=== PATIENT | male | born 1965 | race Caucasian/White ===

== ENCOUNTER 2024-04-11 18:51 | Inpatient (IN) | payer OTHER, SELFPAY ==
[2024-04-11 14:23] VITALS: BP 166/94
--- NOTE | 2024-04-11 15:12 | ED.PDOC.TRB ---
ED Provider Triage
-
Patient is a 58-year-old male who is status post right foot surgery in October by Dr. Coburn with persistent infection. Patient reports he saw Dr. Coburn today and was sent in for admission. Plan as per patient is that Dr. Coburn will do surgery.
Patient denies any fever or chills. PT states that Dr Coburn did wound cx today. PT with obvious swelling erythema and open wound that is draining purulent drainage to posterior ankle. He is nontoxic-appearing will check labs. Will check labs
[2024-04-11 15:49] LABS: % Basophils 0.4 % (0-2); % Eosinophils 2.9 % (0-6); % Immature Granulocytes 0.7 % (0-0.5); % Lymphocytes 21.1 % (20.5-51.1); % Monocytes 12.1 % (1.7-9.3); % Neutrophils 62.8 % (42.2-75.2); Absolute Eosinophils 0.2 10^3/uL (0-0.7); Absolute Immature Granulocytes 0.1 10^3/uL (0-0.05); Absolute Lymphocytes 1.6 10^3/uL (1.2-3.4); Absolute Monocytes 0.9 10^3/uL (0.1-0.6); Absolute Neutrophils 4.8 10^3/uL (1.4-6.5); Hematocrit 38.5 % (39.0-52.0); Mean Corp Hgb Conc. 36.4 g/dL (33.0-37.0); Mean Corpuscular Hgb 29.5 pg (27.0-31.0); Mean Corpuscular Volume 81.2 fL (80.0-94.0); Mean Platelet Volume 10.8 fL (7.4-10.4); Nucleated Red Blood Cells % 0 % (-); Platelet Count 192 10^3/uL (130-400); Red Blood Cell Count 4.74 10^6/uL (4.70-6.10); Red Cell Dist. Width 13.2 % (11.5-14.5); White Blood Cell Count 7.7 10^3/uL (4.8-10.8)
[2024-04-11 16:03] LABS: ALT (SGPT) 58 U/L (0-50); AST (SGOT) 46 U/L (17-59); Albumin 4.8 g/dl (3.5-5.0); Alkaline Phosphatase 59 U/L (38-126); Blood Urea Nitrogen 16 mg/dl (9-20); Calcium 9.8 mg/dl (8.4-10.2); Carbon Dioxide 23 mmol/L (22-30); Chloride 100 mmol/L (98-107); Glucose 140 mg/dl (70-99); Potassium 3.6 mmol/L (3.5-5.1); Sodium 136 mmol/L (135-145); Total Bilirubin 1.1 mg/dl (0.2-1.3); Total Protein 7.2 g/dl (6.3-8.2); eGFR > 60.00
--- NOTE | 2024-04-11 16:21 | ED.GENMED ---
History of Present Illness
General
Chief Complaint: Skin Problem
Source: patient
Exam Limitations: none
Time Seen by Provider: 04/11/24 15:27
Nursing documentation reviewed up to this point in time: agreed with
History of Present Illness
History of Present Illness:
Patient is a 58-year-old male seen by me in triage sent by Dr. Coburn of podiatry. Patient has chronic wound to heal from surgery in October. He denies any fever or chills. Patient is a type II diabetic
Past History
Past History
ED Past Medical History: HTN, Hypercholesterolemia and NIDDM
Social History
Tobacco: Non-smoker
Personal:
Review of Systems
Review of Systems
Allergies reviewed?: Yes
All Other Systems: ROS reviewed and negative except as documented in HPI and ROS
Constitutional: Reports no symptoms; Denies fever, fatigue or chills
Musculoskeletal: Reports other (Redness infection and drainage to right foot)
Skin: Reports other (See above)
Neurological: Reports no symptoms
Psychiatric: Reports no symptoms
Phy Exam
General Physical Exam
General Presentation: no apparent distress
General age: appears stated age
General Skin: warm and dry
General Habitus: normal
General Mental: alert
General Hydration: appears well hydrated
Neurological Exam
Neurological Exam: alert and oriented x3
Musculoskeletal Exam
Musculoskeletal Exam: other (Patient with strong pulses to right lower extremity patient with obvious open wound draining purulent drainage to posterior heel region area is red and swollen)
Skin Exam
Skin Exam: normal color and warm/dry
Psychiatric Exam
Psychiatric Exam: normal mood/affect
Course
Orders/Labs/Results
Orders:
Orders
04/11/24 15:26
IV Insert/Care/Rem.- Treatment PRN
04/11/24 15:40
Complete Blood Count/With Diff Urgent
Comprehensive Metabolic Panel Urgent
04/11/24 16:19
Foot, Right 3 View [CR Foot - Right Min 3 Views] Urgent
Comment:
Reason For Exam: infection
Abnormal Lab Results
04/11/24
15:40
Hct 38.5 L %
(39.0-52.0)
MPV 10.8 H fL
(7.4-10.4)
Abs Immat Gran (auto) 0.1 H 10^3/uL
(0-0.05)
Absolute Monos (auto) 0.9 H 10^3/uL
(0.1-0.6)
Immature Gran % 0.7 H %
(0-0.5)
Monocytes % 12.1 H %
(1.7-9.3)
Glucose 140 H mg/dl
(70-99)
ALT 58 H U/L
(0-50)
04/11/24 15:40
04/11/24 15:40
Vital Signs
Initial and Last Documented VS:
Initial Vital Signs
Temp Pulse Resp BP Pulse Ox
99.3 F 89 18 166/94 96
04/11/24 14:23 04/11/24 14:23 04/11/24 14:23 04/11/24 14:23 04/11/24 14:23
Last Documented Vital Signs
Temp Pulse Resp BP Pulse Ox
99.3 F 89 18 166/94 96
04/11/24 14:23 04/11/24 14:23 04/11/24 14:23 04/11/24 14:23 04/11/24 14:23
MDM/Problems Addressed
Differential Diagnosis Includes:
Persistent foot infection
MDM/Problems Addressed:
Patient sent by Dr. Coburn podiatry for infected right wound. He was sent to the ER by Dr. Coburn for admission for OR cleanout. This wound has been persistent since patient had surgery in October. He denies any fevers he is afebrile. I spoke
with orthopedics Dr. Coburn, blood culture ordered. a wound l culture was sent earlier by him but this was sent from [facility] we will recheck here. In addition as requested IV antibiotics given will check x-ray. Recommend admission MRI for OR
n.p.o.
Chronic conditions affecting care:
NIDDM
*Critical Care Note
Total Time (30-74mins, 75-104mins- exclusive of procedures): Not Applicable
ED Attending Note
-
Portions of this chart may have been created with voice recognition software.� Occasional wrong word or��sound alike� substitutions may have occurred due to the inherent limitations of voice recognition software.
Discharge Plan
Departure
Patient Disposition: Admit
Date of Disposition: 04/11/24
Time of Disposition: 16:29
Presentation/result/management discussed w/ accepting MD/DO: Hospitalist
Patient with high blood pressure during this ER visit?: Yes
Condition: Fair
Covid-19: Not Applicable
Discharge Problem:
foot infection
Prescriptions:
No Action
Atorvastatin
10 mg PO DAILY
lisinopril-hydrochlorothiazide 1 EACH tablet
1 ea PO DAILY
aspirin 81 MG tablet,chewable
81 mg PO DAILY
sitagliptin phos-metformin [Janumet XR] 1 EACH tablet, ER multiphase 24 hr
1 ea PO BID
Patient Comments:
ON HOLD UNTIL 1400PM Thursday12/26/12
Referrals:
Huang Lozada MD [Family Provider] -
Interventions
Interventions:
*Risk Screen - Suicide Last Done: 04/11/24 15:41
*General Assessment Last Done: 04/11/24 15:41
*Neglect/Abuse Screening Last Done: 04/11/24 15:41
ED- Fall Risk Assessment Last Done: 04/11/24 15:41
*ED COVID-19 Vaccine History Last Done: 04/11/24 15:41
ED-Skin Assessment Last Done: 04/11/24 15:41
Discharge Date and Time
Print Language: TAIWANESE
[2024-04-11] MEDS: ZOSYN 50 IV ×2 (16:42→23:19)
[2024-04-11] MEDS: VANCOCIN 200 IV ×2 (17:08→22:04)
[2024-04-11 18:00] VITALS: BP 155/73
--- NOTE | 2024-04-11 18:19 | HPS.HSE ---
Addendum entered and electronically signed by Tucker Barber MD 04/11/24 18:39:
Seen and examined by me independently in collaboration with RYLAN Holm.
Past medical history/social history/medication/allergies reviewed.
Lab data and imaging data reviewed.
58-year-old gentleman with nonhealing right heel wound. Ever since his surgery in October he has been having recurrent infection. Gets better with antibiotics but then reoccurs. He has some sort of anchors placed in the calcaneum bone after the
surgery in October. Seen by oil and gas lease pumper Dr. Coburn and now getting admitted for surgical management of his chronic nonhealing wound.
He denies any fever or chills.
Denies any neuropathy or peripheral arterial disease. He is known diabetic and thinks very well-controlled.
Hemodynamically stable. Afebrile.
Heart sinus and persisted regular.
Chest clear
No lower extremity edema. Palpable dorsalis pedis and bilaterally.
Right heel wound in dressing.Rt foot swelling noted.
Lab data noted-no leukocytosis and creatinine normal. Foot x-ray noted-Osteomyelitis is not excluded on the basis of this imaging.
Chronic nonhealing right heel ulcer with overlying soft tissue swelling concerning for soft tissue infection. Rule out osteomyelitis. Admit to hospital for further evaluation and treatment. Start on empirical antibiotics with Vanco and Zosyn.
Wound cultures have been sent from ER. Obtain MRI of the foot. Consult oil and gas lease pumper. N.p.o. past midnight for possible surgery tomorrow.
DM 2 -hold metformin. On Toujeo as an outpatient. Start on sliding scale insulin. No neuropathy. Check an arterial ultrasound of the leg to make sure no PAD.
Hypertension-continue with ERIC inhibitor's but hold hydrochlorothiazide for now.
Full code
Original Note:
Family Physician
-
Family Physician: Huang Lozada
Chief Complaint
-
Recurrent Right Heel Infection
History of Present Illness
Pt is a 58 yo M with PMH DM, HTN, and HLD presents following referral from Dr Coburn (podiatry) for admission. Pt had R foot surgery in October 2023 which has developed recurrent infection. He reports completing several courses of antibiotics but
notes after completion of course the infection recurs. He was sent to the ED by Dr. Coburn due to recurrent infection and need for R incision/drainage/washout and hardware removal. He denies fever, chills, SOB, chest pain, and palpitations.
Medical History
Past Medical History
Past Medical History: Reports Other
Additional Past Medical History:
Diabetes Mellitus, Type II
Essential Hypertension
Hyperlipidemia
Lumbar Epidural Abscess
Past Surgical History: Reports Other
Additional Past Surgical History:
Lumbar Epidural Abscess Removal
Right Heel Surgery
Social History
Tobacco: Non-smoker
Alcohol: Occasional
Family History
Family History: Not pertinent
Allergies / Home Medications
Allergies reflects when Allergies were last updated in [employer].
Home Medications with original date entered in [employer]
Allergy/Medication List:
Allergies
Allergy/AdvReac Type Severity Reaction Status Date / Time
No Known Allergies Allergy Unverified 04/11/24 14:24
Home Medications
atorvastatin 10 mg tablet 10 mg PO DAILY 12/25/12
gabapentin 300 mg capsule 300 mg PO TIDPRN PRN foot pain 04/11/24
lisinopril 20 mg-hydrochlorothiazide 25 mg tablet 1 tab PO DAILY 04/11/24
metformin 500 mg tablet 1,000 mg PO HS 04/11/24
metformin 500 mg tablet 500 mg PO DAILY 04/11/24
tadalafil 20 mg tablet 20 mg PO DAILYPRN PRN ed 04/11/24
tirzepatide 10 mg/0.5 mL subcutaneous pen injector (Mounjaro) 10 mg SC TU 04/11/24
tramadol 50 mg tablet 50 mg PO Q6HPRN PRN moderate pain 04/11/24
Review of Systems
-
A 12 point ROS was completed and negative except as noted: Yes
Constitutional: Denies Fever or Chills
Respiratory: Denies Cough or Trouble Breathing
Cardiac: Denies Chest Pain or Palpitations
Abdomen/GI: Denies Abdominal Pain, Nausea, Vomiting or Diarrhea
Physical Exam
Vital Signs
Vital Signs
Temp Pulse Resp BP Pulse Ox
99.3 F 89 18 166/94 96
04/11/24 14:23 04/11/24 14:23 04/11/24 14:23 04/11/24 14:23 04/11/24 14:23
Physical Exam
General: Comfortable and Conversant
HEENT: Anicteric and Moist mucous membranes
Respiratory: Clear and Non Labored Respirations
Cardiac: S1/S2, Regular Rhythm and Murmur (2/6 Systolic Murmur)
GI: Soft and Non Tender
Rectal: Deferred by Provider
Musculoskeletal: No Clubbing, No Cyanosis and No Edema
Skin: Warm, Dry and Other (Small right posterior heel wound drainage purulent material)
Neuro: Awake, Alert, Oriented and Nonfocal/grossly intact
Psych: Calm
Laboratory Results
-
04/11/24 15:40
04/11/24 15:40
Laboratory Results
Total Bilirubin 1.1 mg/dl (0.2-1.3) 04/11/24 15:40
AST 46 U/L (17-59) 04/11/24 15:40
ALT 58 U/L (0-50) H 04/11/24 15:40
Alkaline Phosphatase 59 U/L (38-126) 04/11/24 15:40
Data Reviewed
-
Lab Data: Labs Reviewed by me
Impression/Plan
-
Infected Right Heel Wound, concern for underlying osteomyelitis and possibly infected hardware
-Consult Podiatry
-Check Right Foot MRI
-Continue empiric Vancomycin and Zosyn
-NPO after midnight for OR tomorrow
Diabetes Mellitus, Type II
-Patient maintained on Mounjaro as outpatient
-Hold metformin
-Monitor sugars and continue coverage insulin
Essential Hypertension
-Continue lisinopril
-Hold HCTZ
Hyperlipidemia
-Continue atorvastatin
DVT proph: Lovenox
Code Status: Full Code
[2024-04-11 20:00] VITALS: BP 139/96; BMI 41.7
--- NOTE | 2024-04-11 20:00 | PTCARENOTE ---
Pt arrived to room 437-01. Pt AAOx3, VSS. Pt c/o 01/31 pain in right foot. Pt oriented to room, call trent placed within reach.
--- NOTE | 2024-04-11 21:15 | PHA.VAN.IN ---
Assessment
- Assessment
Renal Function: Other (01/08/13 baseline scr: 0.9)
Concomitant Antimicrobials: ZOSYN
- Previous Dosing Experience
Previous Regimen: 1GM IV Q8H
Date of Regimen: 12/26/12
Provided Trough of: 9
Provided AUC of: UNKNOWN
Patient's SCR is: Decreased compared to previous dosing experience (12/26/12 SCR = 1.0)
Patient's weight is: Decreased compared to previous dosing experience (12/26/12 WT = 129.4 KG)
AUC Dosing Plan
- Dosing Variables
Dosing Weight (kg): 120.8
Dosing CrCl (ml/min): 100
Vd coefficient (L/kg): 0.5
- Empiric Dosing
Initial / Loading Dose: 2GM TOTAL
Maintenance Regimen: 1250MG IV Q12H
Estimated AUC (mcg*h/mL): 505
Estimated Peak (mcg*h/mL): 31.9
Estimated Trough (mcg/ml): 12.7
Estimated Half Life (H): 7.9
Pharmacokinetics Vancomycin I
- -
Patient Age: 58
Patient Sex: Male
Vancomycin Day #: 1
Indication: Skin And Soft Tissue ([R] FOOT INFECTION, poss OM)
Requesting Provider: STACEY
Height / Weight:
Height 5 ft 7 in
Actual Weight 120.769 kg
- Vital Signs / Lab Results
Temp Pulse Resp BP Pulse Ox
99.3 F 88 18 139/96 95
04/11/24 20:00 04/11/24 20:00 04/11/24 20:00 04/11/24 20:00 04/11/24 20:00
Lab Results - Hematology
04/11/24
15:40
WBC 7.7
Lab Results - Chemistry
04/11/24
15:40
BUN 16
Creatinine 0.7
Albumin 4.8
Microbiology Results
04/11/24 16:41 Gram Stain - Preliminary
Foot - Right
[2024-04-11 21:52] LABS: Glucose - Point of Care 201 mg/dl (70-99)
[2024-04-11] MEDS: ULTRAM 50 MG PO (21:59)
[2024-04-11] MEDS: NEURONTIN 300 MG PO (22:00)
[2024-04-11 23:45] VITALS: BP 113/71
[2024-04-12] VITALS (14 sets, daily range): BP systolic 110–153; BP diastolic 64–92
[2024-04-12] MEDS: ZOSYN 50 IV ×4 (03:19→21:08)
[2024-04-12 06:00] LABS: Glucose - Point of Care 161 mg/dl (70-99)
[2024-04-12] MEDS: VANCOCIN 275 MG IV (06:16)
--- NOTE | 2024-04-12 06:53 | W.PN.UPDATE ---
Update Note
Progress Note Update
Patient seen and evaluated by Orthopedic surgery this morning. Plan for OR later today under the direction of Dr. Coburn for right ankle I&D and removal of hardware. Patient to remain NPO. Order placed. Currently on started on empirical
antibiotics with Vanco and Zosyn. Please hold Lovenox at this time. Resume per Dr. Coburn recommendation. Consent obtained and placed in patient's chart. All questions were answered.
[2024-04-12 07:51] LABS: Hemoglobin 13.1 g/dL (13.0-18.0); Mean Corp Hgb Conc. 35.4 g/dL (33.0-37.0); Mean Corpuscular Hgb 29.6 pg (27.0-31.0); Mean Corpuscular Volume 83.7 fL (80.0-94.0); Mean Platelet Volume 10.3 fL (7.4-10.4); Platelet Count 180 10^3/uL (130-400); Red Blood Cell Count 4.42 10^6/uL (4.70-6.10); Red Cell Dist. Width 13.2 % (11.5-14.5); White Blood Cell Count 5.6 10^3/uL (4.8-10.8)
[2024-04-12] MEDS: LIPITOR 10 MG PO (08:10)
[2024-04-12 08:28] LABS: Blood Urea Nitrogen 16 mg/dl (9-20); Calcium 9.4 mg/dl (8.4-10.2); Carbon Dioxide 25 mmol/L (22-30); Chloride 101 mmol/L (98-107); Estimated Creatinine Clearance 111 ml/min; Glucose 152 mg/dl (70-99); Potassium 4.1 mmol/L (3.5-5.1); Sodium 136 mmol/L (135-145); eGFR > 60.00
--- NOTE | 2024-04-12 08:50 | PHA.VAN.FU ---
Vancomycin Assessment / Plan
- Assessment
Renal Function: Stable
WBC's are: WNL
In the past 24 hrs, patient has been: Afebrile
Concomitant Antimicrobials: piperacillin/tazobactam
- Dosing Plan
Adjust Regimen to: Vanc 1500mg Q12H starting at 1800
New Regimen Predicts: AUC (459), Peak (30.1), Trough (10.9)
- Monitoring Plan
No level(s) ordered at this time: consider levels in next few days
- Follow Up
Pharmacy will continue to follow.
Vancomycin Follow UP
- -
Patient Age: 58
Patient Sex: Male
Vancomycin Day #: 2
Indication: Skin And Soft Tissue
Requesting Provider: Shailesh Mijares
Pertinent Antimicrobial Allergies:
NKDA
Height / Weight:
Height 5 ft 7 in
Actual Weight 120.769 kg
Pertinent Past Medical History: BMI ~42, DM2
- Vital Signs / Lab Results
Temp Pulse Resp BP Pulse Ox
98.4 F 77 16 110/69 94
04/12/24 07:34 04/12/24 07:34 04/12/24 07:34 04/12/24 07:34 04/12/24 07:34
Lab Results - Hematology
04/11/24 04/12/24
15:40 07:09
WBC 7.7 5.6
Lab Results - Chemistry
04/11/24 04/12/24
15:40 07:09
BUN 16 16
Creatinine 0.7 0.9
Estimated Creat Clear 111
Albumin 4.8
Microbiology Results
04/11/24 16:41 Gram Stain - Preliminary
Foot - Right
[2024-04-12] MEDS: NOVOLOG FLEXPEN-LOW RESISTANCE 1 UNITS SC ×2 (09:14→14:08)
[2024-04-12] MEDS: ZESTRIL 20 MG PO (09:14)
[2024-04-12] MEDS: ULTRAM 50 MG PO ×2 (09:40→22:02)
--- NOTE | 2024-04-12 11:43 | CM ---
Patient seen at bedside. Patient states that he lives with family. Patient stated she lives in a 3 story home and Patient has a walker and crutches at home. Patient stated that his PCP is Dr. Lozada and he uses the [facility] in [place]. Patient
states that he is going for surgery later today. CM will continue to follow for discharge planning needs.
Plan; home with no needs vs home with VN pending medical treatment plan
[2024-04-12 12:14] LABS: Glucose - Point of Care 160 mg/dl (70-99)
--- NOTE | 2024-04-12 13:57 | W.PN.HOSP.TC ---
Today's Communication/Plan
-
OR today
MRI foot pending
Assessment / Plan
Assessment / Plan
Chronic nonhealing right heel ulcer with overlying soft tissue swelling concerning for soft tissue infection. Rule out osteomyelitis. Admitted to hospital for further evaluation and treatment. Started on empirical antibiotics with Vanco and
Zosyn. Wound cultures have been sent from ER. Obtain MRI of the foot. Consult shelf drier operator. N.p.o. for possible surgery today.
DM 2 -hold metformin. On Toujeo as an outpatient. Started on sliding scale insulin. No neuropathy. Check an arterial ultrasound of the leg to make sure no PAD.
Hypertension-continue with ERIC inhibitor's but hold hydrochlorothiazide for now.
Anticipated Discharge: 24 - 48 hours
Subjective/Interval History
-
Date of Service: April 12, 2024
no fever
Objective Data
-
Labs:
Laboratory Results
04/12/24
07:09
WBC 5.6
Hgb 13.1
Hct 37.0 L
Plt Count 180
Sodium 136
Potassium 4.1
Chloride 101
Carbon Dioxide 25
BUN 16
Creatinine 0.9
Glucose 152 H
Calcium 9.4
Vital Signs:
Vital Signs
Temp Pulse Resp BP Pulse Ox
98.4 F 77 16 110/69 98
04/12/24 07:34 04/12/24 07:34 04/12/24 07:34 04/12/24 07:34 04/12/24 11:44
I&O
04/11/24 04/12/24 04/13/24
06:59 06:59 06:59
Intake Total 480 / 480
Balance 480 / 480
Review of Systems
-
Respiratory: Denies Trouble Breathing
Cardiac: Denies Chest Pain
Abdomen/GI: Denies Abdominal Pain, Nausea or Vomiting
Neuro: Denies Dizzy
Physical Exam
-
General: Comfortable
Respiratory: Non Labored Respirations; Negative Accessory Resp Muscle Use
Cardiac: Regular Rhythm and S1/S2
GI: Soft
Neuro: AO x 3
Data Reviewed
-
Labs: Labs Reviewed by me
[2024-04-12 14:18] LABS: Glycohemoglobin (HgbA1c) 7.1 % (4.0-5.6)
--- NOTE | 2024-04-12 17:49 | W.PN.SURGUPD ---
Surgical Update
Surgical Update
S/p Right heel debridement and hardware removal
-Patient to remain NWB to RLE with strict elevation
-Dressings to remain intact, reinforce as needed
-Continue abx per ID recs
-Plan for return to OR on 04/14 for further debridement and possible closure
[2024-04-12 17:59] LABS: Glucose - Point of Care 191 mg/dl (70-99)
[2024-04-12] MEDS: DILAUDID 0.5 MG IV (18:12)
[2024-04-12] MEDS: NOVOLOG vial 1 UNITS SC (18:15)
[2024-04-12] MEDS: VANCOCIN 300 ML IV (18:20)
[2024-04-12] MEDS: VANCOCIN 300 MG IV (18:20)
[2024-04-12] MEDS: NOVOLOG FLEXPEN-LOW RESISTANCE SC (19:10)
--- NOTE | 2024-04-12 19:24 | PTCARENOTE ---
Patient arrived back to unit via stretcher from PACU around 19:10. AAOX3. Denies pain or discomfort.
[2024-04-12 21:40] LABS: Glucose - Point of Care 269 mg/dl (70-99)
[2024-04-12] MEDS: NEURONTIN 300 MG PO (22:02)
[2024-04-13 02:58] VITALS: BP 113/72
--- NOTE | 2024-04-13 03:16 | DOWNTIME ---
There was a [employer] Client Outreach Counselor Downtime on 04/13/2024 from 0100 to 04/13/2024 at 0252. Downtime documentation of patient's care, including medication administrations, has been reconciled in the electronic record per guidelines. Refer to the
patient's paper chart under the miscellaneous tab to see printed paper medication records and downtime forms.
[2024-04-13] MEDS: ZOSYN 50 IV ×3 (04:17→15:07)
[2024-04-13] MEDS: NEURONTIN 300 MG PO ×3 (05:24→23:50)
[2024-04-13] MEDS: ULTRAM 50 MG PO ×4 (05:24→23:50)
[2024-04-13] MEDS: VANCOCIN 300 ML IV (05:25)
[2024-04-13] MEDS: VANCOCIN 300 MG IV (05:25)
[2024-04-13 07:30] VITALS: BP 129/78
--- NOTE | 2024-04-13 07:36 | W.PN.UPDATE ---
Update Note
Progress Note Update
Patient is sitting up comfortably in bed. He reports no pain in the foot/ankle.
Directed exam of right lower extremity reveals dressing clean, dry, and intact. Surrounding skin intact. No discolorations. Wiggles all toes. Sensation intact to light touch. Cap refill <2secs
Wound culture from 04/11/24 with Staph aureus
Wound cultures obtained in the OR on 04/12/24 pending
POD#1 Right heel debridement and hardware removal under the direction of Dr. Coburn
-Patient to remain NWB to RLE with strict elevation
-Dressings to remain intact, reinforce as needed
-Continue abx, currently Zosyn and Vancomycin
-Plan for return to OR on 04/14 for further debridement and possible closure. Updated consent obtained and placed on chart
-NPO after midnight
[2024-04-13 07:41] LABS: Glucose - Point of Care 163 mg/dl (70-99)
[2024-04-13] MEDS: LIPITOR 10 MG PO (09:34)
[2024-04-13] MEDS: TYLENOL 650 MG PO ×2 (09:34→18:01)
[2024-04-13] MEDS: ZESTRIL 20 MG PO (09:34)
[2024-04-13] MEDS: NOVOLOG FLEXPEN-LOW RESISTANCE SC ×2 (09:43→12:34)
--- NOTE | 2024-04-13 10:14 | PHA.VAN.FU ---
Addendum entered and electronically signed by Zuleyka Quintanilla [facility] 04/13/24 11:36:
Agree with resident's assessment and plan below.
Original Note:
Vancomycin Assessment / Plan
- Assessment
Renal Function: Stable
WBC's are: WNL
In the past 24 hrs, patient has been: Afebrile
- Dosing Plan
Continue: 1500mg Q12H
- Monitoring Plan
No level(s) ordered at this time: consider level in the next few days
- Follow Up
Pharmacy will continue to follow.
Vancomycin Follow UP
- -
Patient Age: 58
Patient Sex: Male
Vancomycin Day #: 3
Indication: Skin And Soft Tissue
Requesting Provider: Shailesh Mijares
Pertinent Antimicrobial Allergies:
NKDA
Height / Weight:
Height 5 ft 7 in
Actual Weight 120.769 kg
Pertinent Past Medical History: BMI ~42, T2DM
- Vital Signs / Lab Results
Temp Pulse Resp BP Pulse Ox
98.9 F 90 16 129/78 92
04/13/24 07:30 04/13/24 07:30 04/13/24 07:30 04/13/24 07:30 04/13/24 07:30
Lab Results - Hematology
04/11/24 04/12/24
15:40 07:09
WBC 7.7 5.6
Lab Results - Chemistry
04/11/24 04/12/24
15:40 07:09
BUN 16 16
Creatinine 0.7 0.9
Estimated Creat Clear 111
Albumin 4.8
Microbiology Results
04/11/24 16:41 Wound Culture - Final
Foot - Right S aureus-Methicillin Sensitive
Gram Stain - Final
04/11/24 22:06 MRSA Screen - Final
Nose No Methicillin Resistant Staphylococcus aureus isolated.
04/12/24 17:50 Gram Stain - Preliminary
Heel - Right
04/12/24 17:50 Gram Stain - Preliminary
Heel - Right
04/11/24 16:41 Blood Culture - Preliminary
Blood/Venous No Growth in 24 hours- Final report to follow
--- NOTE | 2024-04-13 11:15 | PN.CDI ---
CDI
- -
CDI:
Physician Documentation Request
Admit Date: 04/11/24 18:51
Dear Doctor Sunil,
Patient admitted with chronic nonhealing right heel ulcer.
Please review the following and provide your response in the progress notes.
Clinical Indicators:
Height: 5' 7'
Weight: 266 lb 4 oz
BMI: 41.7
Please provide an associated diagnosis related to the abnormal BMI, such as:
Morbid obesity
Obesity
BMI is not significant
Other
BMI > or = to 40
Overweight
Obesity:
Due to excess calories
Drug induced
Due to other cause
Severe or morbid obesity:
With alveolar hypoventilation (Obesity hypoventilation syndrome)
Without alveolar hypoventilation
Use of terms such as suspected, likely, concern for, or probable (associated with a specific diagnosis that is being evaluated, monitored, or treated as if it exists) are acceptable and can be coded in the inpatient setting, when documented at the
time of discharge.
Thank you,
Patria PENA,RN,CCDS
CDI Specialist
Available via tiger text
Please use your independent medical judgment in providing your response.
--- NOTE | 2024-04-13 11:28 | W.PN.HOSP.TC ---
Addendum entered and electronically signed by Tucker Barber MD 04/13/24 15:57:
Based on BMI measurements on adx- suggestive of obesity.
Original Note:
Today's Communication/Plan
-
Continue with antibiotics
OR tomorrow per podiatry
Consult ID
Assessment / Plan
Assessment / Plan
Chronic nonhealing right heel ulcer with overlying soft tissue swelling concerning for soft tissue infection. MRI raises concern for calcaneal osteomyelitis.
Status post I&D of right heel wound as well as removal of anchors in the heel. For repeat surgery and possible closure then noted.
Continue the current antibiotics and follow culture data.
Patient might need long-term antibiotics-consult ID.
DM 2 -hold metformin. On [facility] as an outpatient. Started on sliding scale insulin. No neuropathy. HbA1c 7.1
Hypertension-continue with ERIC inhibitor's but hold hydrochlorothiazide for now.
Anticipated Discharge: > 48 hours
Subjective/Interval History
-
Date of Service: April 13, 2024
Patient's status post right heel I&D 04/12. Pain control okay with pain medication.
No fever or chills.
Objective Data
-
Vital Signs:
Vital Signs
Temp Pulse Resp BP Pulse Ox
98.9 F 90 16 129/78 92
04/13/24 07:30 04/13/24 07:30 04/13/24 07:30 04/13/24 07:30 04/13/24 07:30
I&O
04/12/24 04/13/24 04/14/24
06:59 06:59 06:59
Intake Total 480 / 480 735 / 735
Output Total 1075 / 1075
Balance 480 / 480 -340 / -340
Review of Systems
-
Constitutional: Denies Fever
Respiratory: Denies Trouble Breathing
Cardiac: Denies Chest Pain
Abdomen/GI: Denies Abdominal Pain, Nausea, Vomiting or Diarrhea
Neuro: Denies Dizzy
Physical Exam
-
General: Comfortable
Respiratory: Non Labored Respirations; Negative Accessory Resp Muscle Use
Cardiac: Regular Rhythm and S1/S2
GI: Soft
Musculoskeletal: Other (rt foot in dressing)
Neuro: AO x 3
Psych: Calm
Data Reviewed
-
Labs: Labs Reviewed by me
[2024-04-13 11:57] VITALS: PULSE 84; O2SAT 93
[2024-04-13 11:59] LABS: Glucose - Point of Care 139 mg/dl (70-99)
--- NOTE | 2024-04-13 12:16 | PTOTSP ---
pt currently requires supervision to no assistance to complete simple ADLs, functional transfers, ambulation. educated pt on walker safety, dressing technique. pt demonstrated and verbalized understanding. no acute OT needs identified at this time,
will sign off.
[2024-04-13 15:21] VITALS: BP 143/73
--- NOTE | 2024-04-13 15:46 | CON.ID ---
Consultation
-
Date/Time Consultation Requested: 04/13/2024 08:34
Date/Time Consultation Performed: 04/13/2024 1540
Requesting Provider: Dr. Barber
Performing Provider: Dr. Lima
Reason for Consultation: Right heel infection
Chief Complaint / Past History
History of Present Illness
Edwin Viveros is a 58-year-old man being evaluated the request of Dr. Barber in regards to a right heel infection. History is obtained from chart review, along with patient interview.
The patient has a history of bone spurs, and on November 19, 2023 underwent surgery which involved manipulating the Achilles tendon. He recalls that approximate 2 days after surgery he 'popped a stitch', and approximately 10 days after surgery he
recalls developing an infection. He reports receiving several rounds of doxycycline, and after each course of antibiotics of the drainage decreased, only to return following the cessation of antibiotic therapy. He has previously seen Infectious
Diseases and recently was on a course of Levaquin. He has continued to follow with Orthopedics, and was sent into the hospital on 04/11 for more definitive washout and surgery.
At this point in time he is status post removal of hardware (anchors), with a further surgery anticipated tomorrow. He denies any fevers or chills. He denies any spreading erythema up his leg. Thus far he has had no issues with the antibiotics.
Past History
Additional Past Medical History:
DM
HTN
Dyslipidemia
Additional Past Surgical History:
Right ankle surgery
Allergy History:
No Known Allergies Allergy (Unverified 04/11/24 14:24)
Medications Reviewed: Yes
Current Antibiotics:
Zosyn
Vancomycin
Social History
Tobacco: Non-Smoker
Alcohol: None
Drug: None
Personal:
Living: With Family
Employment: Employed
Family History
Family History: Not Pertinent
Review of Systems
Vital Signs
Temp Pulse Resp BP Pulse Ox
99.8 F 88 16 143/73 96
04/13/24 15:21 04/13/24 15:21 04/13/24 15:21 04/13/24 15:21 04/13/24 15:21
Physical Exam
Physical Exam
Constitutional: No Acute Distress, Comfortable and Non-toxic
Eyes: No Conjunctival Hemorrhage and Sclera Anicteric
Oral: No Thrush and No Ulcers
Cardiovascular: S1/S2; Negative S3/S4
Pulmonary: Clear and Non Labored
Gastrointestinal: Soft, Non Tender, Non Distended and Normal Bowel Sounds
Extremities: Edema (Trace right lower extremity); Negative Erythema
Skin: Warm and Dry; Negative Rash or Jaundice
Wound: Other (Right ankle area dressed in Grant wrap (not removed because of recent surgery))
Neurological: Awake and Alert
Psychological: Calm
Lab / Diagnostic Study Results
04/12/24 07:09
04/12/24 07:09
Abs Immat Gran (auto) 0.1 10^3/uL (0-0.05) H 04/11/24 15:40
Absolute Neuts (auto) 4.8 10^3/uL (1.4-6.5) 04/11/24 15:40
Absolute Lymphs (auto) 1.6 10^3/uL (1.2-3.4) 04/11/24 15:40
Absolute Monos (auto) 0.9 10^3/uL (0.1-0.6) H 04/11/24 15:40
Absolute Basos (auto) 0.0 10^3/uL (0-0.2) 04/11/24 15:40
Immature Gran % 0.7 % (0-0.5) H 04/11/24 15:40
Neutrophils % 62.8 % (42.2-75.2) 04/11/24 15:40
Lymphocytes % 21.1 % (20.5-51.1) 04/11/24 15:40
Monocytes % 12.1 % (1.7-9.3) H 04/11/24 15:40
Eosinophils % 2.9 % (0-6) 04/11/24 15:40
Basophils % 0.4 % (0-2) 04/11/24 15:40
Microbiology Results
Micro:
04/12/24 17:50 Anaerobic Culture - Preliminary
Heel - Right Culture pending. Anaerobic cultures are examined after 3
days incubation. Additional information to follow.
04/12/24 17:50 Tissue Culture - Preliminary
Heel - Right Staphylococcus aureus
Gram Stain - Preliminary
04/12/24 17:50 Wound Culture - Preliminary
Heel - Right No growth
Gram Stain - Preliminary
04/11/24 16:41 Wound Culture - Final
Foot - Right S aureus-Methicillin Sensitive
Gram Stain - Final
04/11/24 22:06 MRSA Screen - Final
Nose No Methicillin Resistant Staphylococcus aureus isolated.
04/11/24 16:41 Blood Culture - Preliminary
Blood/Venous No Growth in 24 hours- Final report to follow
Imaging:
04/12/2024 MRI right lower extremity: There is a soft tissue defect with underlying phlegmonous change along the posterior soft tissues of the heel extending through the distal aspect of the Achilles tendon and into the underlying posterior
calcaneal bone with findings of calcaneal osteomyelitis. There is increased signal more pronounced along the superior calcaneal anchors, likely due to loosening/infection.
04/11/2024 Right foot x-ray: The posterior and superior aspects of the os calcis have been resected in the interval since the prior study and there is severe overlying soft tissue swelling.
Osteomyelitis is not excluded on the basis of this imaging and if this is a clinical consideration, it could be best further evaluated with nonemergent MRI. Please see full dictation for additional detail. Film personally viewed.
Assessment / Plan
Right ankle osteomyelitis
DM (uncontrolled (A1c = 7.1)
HTN
Dyslipidemia
Recommendations:
Review of culture data indicate the presence of MSSA. Imaging indicates the presence of osteomyelitis.
Discontinue further vancomycin and Zosyn. Transition to cefazolin 2 g IV every 8 hours. Given osteomyelitis, patient will require 6-week course of antibiotics.
Moving forward, patient will require PICC line placement, which can be placed once home infusion benefits can be determined.
Will place home infusion sheet on paper chart.
--- NOTE | 2024-04-13 16:13 | CM ---
Chart reviewed home when stable, no needs.
Plan; Home no needs.
[2024-04-13 16:46] VITALS: BP 140/76; PULSE 85; O2SAT 97
[2024-04-13 17:30] LABS: Glucose - Point of Care 158 mg/dl (70-99)
[2024-04-13] MEDS: NOVOLOG FLEXPEN-LOW RESISTANCE 1 UNITS SC (17:31)
[2024-04-13] MEDS: ANCEF 10 IV ×2 (17:32→23:51)
[2024-04-13 21:21] LABS: Glucose - Point of Care 259 mg/dl (70-99)
[2024-04-13 23:18] VITALS: BP 141/76
[2024-04-14] VITALS (11 sets, daily range): BP systolic 119–149; BP diastolic 61–90
[2024-04-14 06:05] LABS: Glucose - Point of Care 167 mg/dl (70-99)
[2024-04-14] MEDS: NOVOLOG FLEXPEN-LOW RESISTANCE 1 UNITS SC (06:19)
[2024-04-14] MEDS: ZESTRIL 20 MG PO (08:47)
[2024-04-14] MEDS: ANCEF 10 IV ×2 (08:47→23:21)
[2024-04-14] MEDS: LIPITOR 10 MG PO (08:47)
[2024-04-14] MEDS: NEURONTIN 300 MG PO ×2 (08:50→20:06)
[2024-04-14] MEDS: TYLENOL 650 MG PO ×2 (08:50→20:05)
[2024-04-14] MEDS: ULTRAM 50 MG PO ×2 (08:54→20:06)
[2024-04-14 11:48] LABS: Glucose - Point of Care 143 mg/dl (70-99)
--- NOTE | 2024-04-14 13:05 | W.PN.HOSP.TC ---
Today's Communication/Plan
-
OR today
PICC ordered
Assessment / Plan
Assessment / Plan
Chronic nonhealing right heel ulcer with overlying soft tissue swelling concerning for soft tissue infection. MRI raises concern for calcaneal osteomyelitis.
Status post I&D of right heel wound as well as removal of anchors in the heel. For repeat surgery today and possible closure then noted.
Continue the current antibiotics and follow culture data.
Patient might need long-term antibiotics-appreciate ID input- arranging OP tx for 6 weeks. PICC line after surgery .
DM 2 -hold metformin. On [facility] as an outpatient. Started on sliding scale insulin. No neuropathy. HbA1c 7.1
Hypertension-continue with ERIC inhibitor's but hold hydrochlorothiazide for now.
Good DP rt foot -hold US
Anticipated Discharge: 24 - 48 hours
Subjective/Interval History
-
Date of Service: April 14, 2024
No overnight events.
No fever or chills.
Right foot pain is okay.
Objective Data
-
Vital Signs:
Vital Signs
Temp Pulse Resp BP Pulse Ox
97.8 F 76 16 147/80 98
04/14/24 07:30 04/14/24 07:30 04/14/24 07:30 04/14/24 07:30 04/14/24 08:40
I&O
04/13/24 04/14/24 04/15/24
06:59 06:59 06:59
Intake Total 735 / 735 960 / 960
Output Total 1075 / 1075
Balance -340 / -340 960 / 960
Review of Systems
-
Respiratory: Denies Trouble Breathing
Cardiac: Denies Chest Pain
Abdomen/GI: Denies Abdominal Pain, Nausea, Vomiting or Diarrhea
Neuro: Denies Dizzy
Physical Exam
-
General: No Apparent Distress
HEENT: Moist Mucous Membranes
Respiratory: Clear to Auscultation
Cardiac: Regular Rhythm and S1/S2
Musculoskeletal: Other (right foot in dressing)
Neuro: AO x 3
Psych: Calm
--- NOTE | 2024-04-14 14:44 | W.PN.ID1 ---
Date of Service
Date of Service: April 14, 2024
Today's Communication
Continue antibiotics.
Assessment / Plan
Right ankle osteomyelitis
DM (uncontrolled (A1c = 7.1)
HTN
Dyslipidemia
Recommendations:
Continue cefazolin 2 g IV every 8 hours. Given osteomyelitis, patient will require 6-week course of antibiotics.
Moving forward, patient will require PICC line placement, which can be placed once home infusion benefits can be determined.
Home infusion sheet placed on paper chart.
Chief Complaint
-: Other (Right foot infection)
Subjective / Review of Systems
Review of Systems: No Fever and No Chills
Vital Signs / Physical Exam
Vital Signs
Vital Signs
Temp Pulse Resp BP Pulse Ox
97.8 F 76 16 147/80 98
04/14/24 07:30 04/14/24 07:30 04/14/24 07:30 04/14/24 07:30 04/14/24 08:40
Physical Exam
Constitutional: No Acute Distress, Comfortable and Non-toxic
Eyes: No Conjunctival Hemorrhage
Cardiovascular: S1/S2; Negative S3/S4
Pulmonary: Non Labored
Gastrointestinal: Soft, Non Tender and Non Distended
Wound: Other (Right foot dressed in Grant wrap. No erythema extending up leg.)
Neurological: Awake and Alert
Objective Data
Lab Data
Lab Results
04/12/24 07:09
04/12/24 07:09
Estimated Creat Clear 111 ml/min 04/12/24 07:09
Total Bilirubin 1.1 mg/dl (0.2-1.3) 04/11/24 15:40
AST 46 U/L (17-59) 04/11/24 15:40
ALT 58 U/L (0-50) H 04/11/24 15:40
Alkaline Phosphatase 59 U/L (38-126) 04/11/24 15:40
Most recent labs reviewed.
Micro Results:
04/12/24 17:50 Wound Culture - Preliminary
Heel - Right No growth
Gram Stain - Preliminary
04/12/24 17:50 Tissue Culture - Final
Heel - Right S aureus-Methicillin Sensitive
Gram Stain - Final
04/11/24 16:41 Blood Culture - Preliminary
Blood/Venous No Growth in 48 hours- Final report to follow
04/12/24 17:50 Anaerobic Culture - Preliminary
Heel - Right Culture pending. Anaerobic cultures are examined after 3
days incubation. Additional information to follow.
04/11/24 16:41 Wound Culture - Final
Foot - Right S aureus-Methicillin Sensitive
Gram Stain - Final
04/11/24 22:06 MRSA Screen - Final
Nose No Methicillin Resistant Staphylococcus aureus isolated.
Imaging:
04/12/2024 MRI right lower extremity: There is a soft tissue defect with underlying phlegmonous change along the posterior soft tissues of the heel extending through the distal aspect of the Achilles tendon and into the underlying posterior
calcaneal bone with findings of calcaneal osteomyelitis. There is increased signal more pronounced along the superior calcaneal anchors, likely due to loosening/infection.
04/11/2024 Right foot x-ray: The posterior and superior aspects of the os calcis have been resected in the interval since the prior study and there is severe overlying soft tissue swelling.
Osteomyelitis is not excluded on the basis of this imaging and if this is a clinical consideration, it could be best further evaluated with nonemergent MRI. Please see full dictation for additional detail. Film personally viewed.
--- NOTE | 2024-04-14 14:58 | CM ---
corporate general manager met with patient and OR later today.
Plan; Possible OR later today.
--- NOTE | 2024-04-14 15:50 | PTCARENOTE ---
04/14- OR called for report. Advised PICC is not able to be used at this time d/t coiling in the R-subclavian as per Physician. PICC will be adjusted by IV team post-procedure as per Physician. OR verbalized understanding. OR requests 1600 Ancef
be sent with him to OR to be administered pre-op. This dose of Ancef will not be administered on this floor.
--- NOTE | 2024-04-14 16:09 | VATNOTE ---
PICC malpositioned per Radiology report. Patient taken to OR prior to VAT being able to redirect PICC line. Pre-Op/PACU RNs made aware not to use PICC line. VAT to reposition PICC line once able.
[2024-04-14] MEDS: ANCEF IV (18:26)
--- NOTE | 2024-04-14 18:30 | W.PN.UPDATE ---
Update Note
Progress Note Update
s/p right heel debridement and closure
-Strict NWB RLE
-Cultures and path taken post lavage, anticipate 6 weeks of IV ABx
-dressings C/D/I, float heel and elevate limb
-Okay to D/C per pods/ortho
-Follow up in office next week
[2024-04-14 18:56] LABS: Glucose - Point of Care 180 mg/dl (70-99)
[2024-04-14] MEDS: SUBLIMAZE 50 MCG IV ×3 (19:04→19:25)
[2024-04-14] MEDS: NOVOLOG vial 1 UNITS SC (19:08)
[2024-04-14] MEDS: DEMEROL 12.5 MG IV ×2 (19:24→19:30)
--- NOTE | 2024-04-14 20:00 | PTCARENOTE ---
Received report from PACU - Fabiana DEGROOT. Patient s/p I&D of right heel. Assisted patient into bed without difficult, nursing assessment completed and as documented. Patient with ERIC/splint wrapped to RLE, toes visible at this time; +sensation, +cap
refill, warm to touch and able to move on command. Patient c/o 9/10 pain in right heel, PRN medications given see OCT. BARBIE PICC repositioned per VAT, CXR ordered and resulted - ok to use. PO medications given without difficulty, boxed lunch
provided, VSS, call trent within reach, continue with current care.
--- NOTE | 2024-04-14 20:52 | VATNOTE ---
Pt. returned from PACU and thus able to redirect right PICC per protocol. Repeat CXR ordered. at bedside.
[2024-04-14 21:41] LABS: Glucose - Point of Care 273 mg/dl (70-99)
[2024-04-14] MEDS: DILAUDID 0.25 MG IV (21:51)
[2024-04-15 03:13] VITALS: BP 127/70
[2024-04-15] MEDS: ULTRAM 50 MG PO ×3 (03:18→19:54)
[2024-04-15] MEDS: TYLENOL 650 MG PO ×3 (03:18→16:45)
[2024-04-15] MEDS: NEURONTIN 300 MG PO ×3 (03:18→19:55)
[2024-04-15 07:25] VITALS: BP 141/85
[2024-04-15 07:50] LABS: Glucose - Point of Care 140 mg/dl (70-99)
[2024-04-15] MEDS: NOVOLOG FLEXPEN-LOW RESISTANCE SC (07:53)
--- NOTE | 2024-04-15 08:04 | W.PN.ORTHO ---
Today's Communication / Plan
-
58M POD 1 s/p right heel debridement and closure w/ Dr. Coburn
-Strict NWB RLE
-Cultures and path taken post lavage, anticipate 6 weeks of IV ABx
-dressings C/D/I, float heel and elevate limb
-Okay to D/C per pods/ortho
-Follow up in office next week
-DVT ppx 6 weeks ASA unless recommended otherwise per primary
-please include gabapentin, tramadol, and something in small quantity for breathrough pain ie. oxycodone IR
Assessment
.
Distal Motor Intact: Yes
Dressing:
Clean, dry and intact.
Plan
.
Surgery / Date: 14 Apr 2024 w/ Dr. Coburn
Activity:
Out of bed.
PT/OT
Subjective
.
.:
Patient resting comfortably.
Vital Signs and Labs
.
Vital Signs and Labs:
Lab Results
04/12/24 07:09
04/12/24 07:09
Temp Pulse Resp BP Pulse Ox
98.2 F 68 18 127/70 97
04/15/24 03:13 04/15/24 03:13 04/15/24 03:13 04/15/24 03:13 04/15/24 03:13
[2024-04-15] MEDS: ANCEF 10 IV ×3 (08:35→23:50)
[2024-04-15] MEDS: LIPITOR 10 MG PO (08:35)
[2024-04-15] MEDS: ZESTRIL 20 MG PO (08:35)
[2024-04-15] MEDS: ROXICODONE 5 MG PO ×3 (08:49→23:51)
--- NOTE | 2024-04-15 10:26 | W.PN.ID1 ---
Date of Service
Date of Service: April 15, 2024
Today's Communication
Continue antibiotics.
Assessment / Plan
Right ankle osteomyelitis
DM (uncontrolled; A1c = 7.1)
HTN
Dyslipidemia
Recommendations:
Continue cefazolin 2 g IV every 8 hours for a 6 week course given osteomyelitis.
PICC line placed.
Home infusion sheet placed on paper chart.
Follow-up in the office in 2 weeks time.
����������������������������������������������������������
Chief Complaint
-: Other (Right foot infection)
Subjective / Review of Systems
Review of Systems: No Fever and No Chills
Vital Signs / Physical Exam
Vital Signs
Vital Signs
Temp Pulse Resp BP Pulse Ox
98 F 81 18 141/85 97
04/15/24 07:25 04/15/24 07:25 04/15/24 07:25 04/15/24 08:35 04/15/24 07:25
Physical Exam
Constitutional: No Acute Distress, Comfortable and Non-toxic
Eyes: No Conjunctival Hemorrhage
Pulmonary: Non Labored
Gastrointestinal: Non Distended
Wound: Other (Right foot dressed in Grant wrap. No erythema extending up leg.)
Neurological: Awake and Alert
Lines: PICC (Right UE)
Objective Data
Lab Data
Lab Results
04/12/24 07:09
04/12/24 07:09
Estimated Creat Clear 111 ml/min 04/12/24 07:09
Total Bilirubin 1.1 mg/dl (0.2-1.3) 04/11/24 15:40
AST 46 U/L (17-59) 04/11/24 15:40
ALT 58 U/L (0-50) H 04/11/24 15:40
Alkaline Phosphatase 59 U/L (38-126) 04/11/24 15:40
Most recent labs reviewed.
Micro Results:
04/14/24 17:52 Wound Culture - Pending
Foot - Right Gram Stain - Preliminary
04/14/24 17:52 Anaerobic Culture - Pending
Foot - Right
04/11/24 16:41 Blood Culture - Preliminary
Blood/Venous No Growth in 72 hours- Final report to follow
04/12/24 17:50 Wound Culture - Preliminary
Heel - Right No growth
Gram Stain - Preliminary
04/12/24 17:50 Tissue Culture - Final
Heel - Right S aureus-Methicillin Sensitive
Gram Stain - Final
04/12/24 17:50 Anaerobic Culture - Preliminary
Heel - Right Culture pending. Anaerobic cultures are examined after 3
days incubation. Additional information to follow.
04/11/24 16:41 Wound Culture - Final
Foot - Right S aureus-Methicillin Sensitive
Gram Stain - Final
04/11/24 22:06 MRSA Screen - Final
Nose No Methicillin Resistant Staphylococcus aureus isolated.
Tissue Culture Final 04/14/24-0832
Many S aureus-Methicillin Sensitive
Organism 1 S aureus-Methicillin Sensitive
1. S aureus-Methicillin Sensitive
M.I.C. RX
--------- ---
Amoxicillin/Potas. Clavulanate <=4/2 S
Ampicillin <=2 R
Clindamycin <=0.5 S
Gentamicin <=4 S
Erythromycin <=0.5 S
Levofloxacin <=1 S
Oxacillin <=0.25 S
Tetracycline <=4 S
Trimethoprim/Sulfamethoxazole <=0.5/9.5 R
Vancomycin 1 S
Imaging:
04/12/2024 MRI right lower extremity: There is a soft tissue defect with underlying phlegmonous change along the posterior soft tissues of the heel extending through the distal aspect of the Achilles tendon and into the underlying posterior
calcaneal bone with findings of calcaneal osteomyelitis. There is increased signal more pronounced along the superior calcaneal anchors, likely due to loosening/infection.
04/11/2024 Right foot x-ray: The posterior and superior aspects of the os calcis have been resected in the interval since the prior study and there is severe overlying soft tissue swelling.
Osteomyelitis is not excluded on the basis of this imaging and if this is a clinical consideration, it could be best further evaluated with nonemergent MRI. Please see full dictation for additional detail. Film personally viewed.
[2024-04-15 11:14] VITALS: BP 144/80
[2024-04-15 11:32] LABS: Glucose - Point of Care 153 mg/dl (70-99)
--- NOTE | 2024-04-15 12:04 | W.PN.HOSP.TC ---
Today's Communication/Plan
-
cleared for d/c by all consultants--has PICC for IV ABX
await CM
Assessment / Plan
Assessment / Plan
pt is a 58 year old male
Chronic nonhealing right heel ulcer with overlying soft tissue swelling concerning for soft tissue infection. 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 For repeat
surgery today and possible closure then noted--appreciate ID input- arranging OP tx for [address] weeks[address] line in place
DM 2 -hold metformin. [facility] Started on sliding scale insulin. No neuropathy. HbA1c 7.1
Essential Hypertension-continue with ERIC inhibitor's but hold hydrochlorothiazide for now.
Good DP rt foot -hold US
Anticipated Discharge: Today
Subjective/Interval History
-
Date of Service: April 15, 2024
pt ready for discharge
Objective Data
-
Vital Signs:
max temp for 24 hours
04/14/24
22:10
Temp 99.4 F
Vital Signs
Temp Pulse Resp BP Pulse Ox
97.7 F 81 16 144/80 96
04/15/24 11:14 04/15/24 11:14 04/15/24 11:14 04/15/24 11:14 04/15/24 11:14
I&O
04/14/24 04/15/24 04/16/24
06:59 06:59 06:59
Intake Total 960 / 960 340 / 340
Output Total 800 / 800
Balance 960 / 960 -460 / -460
Review of Systems
-
All other systems: Reviewed and negative
Physical Exam
-
General: Well Developed, Well Nourished and No Apparent Distress
HEENT: Normocephalic and Atraumatic
Respiratory: Clear to Auscultation; Negative Wheezes or Rhonchi
Cardiac: Regular Rhythm and S1/S2; Negative Murmur
GI: Soft, Nontender, Nondistended and Normal Bowel Sounds
Musculoskeletal: No Clubbing, No Cyanosis and Other (right leg wrapped)
Neuro: Awake and Alert
--- NOTE | 2024-04-15 12:34 | CM ---
Addendum entered by Emma Hale 04/15/24 15:16:
Patient contacted case aide requesting a tier 1 infusion company, and provided name of facility to case aide [facility] [place] [phone] , all clinical faxed and per Giles pharmacist at [facility] he will not
be able to provide medication till Thursday or Thursday. Patient does not want to stay till Thursday and asked that case aide appeal with the insurance for a tier 2 or 3, case aide reached out to patient's insurance [phone] and spoke with
Raffy, and requested to talk with supervisor core shop to see if they could offer a tier 2 or tier 3 that could provide medication today for patient.
Addendum entered by Emma Hale 04/15/24 15:13:
compliance program manager continues to follow with patient progress, and crystal contacted case aamir stating that he wanted a tier one infusion compnay, [facility] are a tier 3, caqse tonieamamgenr [id number] out to [facility] orf Filomena Salazar [phone]
Original Note:
Chart reviewed and per notes plan is for patient to return to home on IV ABX, options discussed for home infusion therapy and patient is agreeable to [facility], referral sent to [facility] for home infusion, and Jossie will be out today to teach
patient between 2:30-3pm, [facility] to check on cost, patient and physician aware of plan. Hopefully discharge home and have patient set up for 10pm delivery.
Plan; Home with [facility] infusion.
``
[2024-04-15] MEDS: NOVOLOG FLEXPEN-LOW RESISTANCE 1 UNITS SC ×2 (12:52→16:48)
[2024-04-15 15:41] VITALS: BP 143/74
[2024-04-15 16:49] LABS: Glucose - Point of Care 174 mg/dl (70-99)
[2024-04-15 21:04] LABS: Glucose - Point of Care 194 mg/dl (70-99)
[2024-04-15 23:21] VITALS: BP 128/82
[2024-04-16 07:14] VITALS: BP 130/80
[2024-04-16 07:57] LABS: Glucose - Point of Care 150 mg/dl (70-99)
[2024-04-16] MEDS: ULTRAM 50 MG PO ×3 (08:02→23:05)
[2024-04-16] MEDS: TYLENOL 650 MG PO ×3 (08:03→23:05)
[2024-04-16] MEDS: ZESTRIL 20 MG PO (08:03)
[2024-04-16] MEDS: ANCEF 10 IV ×3 (08:06→23:06)
[2024-04-16] MEDS: LIPITOR 10 MG PO (08:06)
[2024-04-16] MEDS: NOVOLOG FLEXPEN-LOW RESISTANCE 1 UNITS SC ×2 (08:07→12:34)
[2024-04-16 09:19] LABS: Blood Urea Nitrogen 14 mg/dl (9-20); Calcium 8.8 mg/dl (8.4-10.2); Carbon Dioxide 25 mmol/L (22-30); Chloride 105 mmol/L (98-107); Estimated Creatinine Clearance > 125 ml/min; Glucose 212 mg/dl (70-99); Potassium 4.2 mmol/L (3.5-5.1); Sodium 142 mmol/L (135-145); eGFR > 60.00
[2024-04-16 09:24] LABS: % Basophils 0.7 % (0-2); % Eosinophils 4.2 % (0-6); % Lymphocytes 29.7 % (20.5-51.1); % Monocytes 10.8 % (1.7-9.3); % Neutrophils 53.6 % (42.2-75.2); Absolute Basophils 0.1 10^3/uL (0-0.2); Absolute Eosinophils 0.3 10^3/uL (0-0.7); Absolute Immature Granulocytes 0.1 10^3/uL (0-0.05); Absolute Lymphocytes 2.1 10^3/uL (1.2-3.4); Absolute Monocytes 0.8 10^3/uL (0.1-0.6); Absolute Neutrophils 3.8 10^3/uL (1.4-6.5); Hematocrit 32.1 % (39.0-52.0); Hemoglobin 11.1 g/dL (13.0-18.0); Mean Corp Hgb Conc. 34.6 g/dL (33.0-37.0); Mean Corpuscular Hgb 29.1 pg (27.0-31.0); Mean Platelet Volume 9.9 fL (7.4-10.4); Nucleated Red Blood Cells % 0 % (-); Platelet Count 225 10^3/uL (130-400); Red Blood Cell Count 3.82 10^6/uL (4.70-6.10); Red Cell Dist. Width 13.7 % (11.5-14.5); White Blood Cell Count 7.1 10^3/uL (4.8-10.8)
--- NOTE | 2024-04-16 10:40 | W.PN.ORTHO ---
Today's Communication / Plan
-
58M POD 2 s/p right heel debridement and closure w/ Dr. Coburn
- Strict NWB RLE
- Tissue culture from 04/12: (+) S aureus-Methicillin Sensitive. Preliminary wound culture from 04/14: No growth. Preliminary gram stain: Rare WBC, no organisms seen.
- Cultures and path taken post lavage, anticipate 6 weeks of IV Cefazolin 2g q8 hours given osteomyelitis per ID. Appreciate ID recommendations. PICC line placed.
- Dressings C/D/I, float heel and elevate limb.
- Okay to D/C per pods/ortho.
- Follow up in office next week.
- DVT ppx 6 weeks ASA unless recommended otherwise per primary
- Please include Gabapentin, Tramadol, and something in small quantity for breathrough pain ie. Oxycodone IR.
Assessment
.
Distal Motor Intact: Yes
Dressing:
Clean, dry and intact.
Splint intact RLE.
Assessment:
POD 2 Right Heel debridement and closure 04/[address] Coburn
Plan
.
Surgery / Date: 14 Apr 2024 w/ Dr. Coburn
Activity:
Out of bed.
PT/OT
Discharge Information:
Appreciate CM
Subjective
.
.:
Patient resting comfortably.
Vital Signs and Labs
.
Vital Signs and Labs:
Lab Results
04/16/24 08:54
04/16/24 08:54
Temp Pulse Resp BP Pulse Ox
98.2 F 73 20 130/80 96
04/16/24 07:14 04/16/24 08:03 04/16/24 07:14 04/16/24 08:03 04/16/24 07:14
[2024-04-16 11:24] LABS: Glucose - Point of Care 169 mg/dl (70-99)
[2024-04-16] MEDS: NEURONTIN 300 MG PO ×2 (11:44→19:21)
--- NOTE | 2024-04-16 14:05 | W.PN.HOSP.TC ---
Today's Communication/Plan
-
cw abx
Ongoing dispo efforts
Assessment / Plan
Assessment / Plan
pt is a 58 year old male
Chronic nonhealing right heel ulcer with overlying soft tissue swelling concerning for soft tissue infection. 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 For repeat
surgery today and possible closure then noted--appreciate ID input- arranging OP tx for [address] weeks[address] line in place
DM 2 -hold metformin. On [facility] as an outpatient. Started on sliding scale insulin. No neuropathy. HbA1c 7.1
Essential Hypertension-continue with ERIC inhibitor's but hold hydrochlorothiazide for now.
Good DP rt foot -hold US
Anticipated Discharge: 24 - 48 hours
Subjective/Interval History
-
Date of Service: April 16, 2024
No new issues. Await disposition-Home antibiotic arrangements.
Denies any fever or chills.
Right foot pain controlled ok with meds.
Objective Data
-
Labs:
Laboratory Results
04/16/24
08:54
WBC 7.1
Hgb 11.1 L
Hct 32.1 L
Plt Count 225 D
Sodium 142
Potassium 4.2
Chloride 105
Carbon Dioxide 25
BUN 14
Creatinine 0.7
Glucose 212 H
Calcium 8.8
Vital Signs:
Vital Signs
Temp Pulse Resp BP Pulse Ox
98.2 F 73 20 130/80 96
04/16/24 07:14 04/16/24 08:03 04/16/24 07:14 04/16/24 08:03 04/16/24 07:14
I&O
04/15/24 04/16/24 04/17/24
06:59 06:59 06:59
Intake Total 340 / 340 1680 / 1680
Output Total 800 / 800
Balance -460 / -460 1679
Review of Systems
-
Constitutional: Denies Fever
Respiratory: Denies Trouble Breathing
Cardiac: Denies Chest Pain
Neuro: Denies Dizzy
Physical Exam
-
General: Comfortable
Respiratory: Non Labored Respirations; Negative Accessory Resp Muscle Use
Musculoskeletal: Other (rt foot in dressing - no obvious bleeding on dressing.)
Neuro: AO x 3
Psych: Calm
Data Reviewed
-
Labs: Labs Reviewed by me
[2024-04-16 15:41] VITALS: BP 134/72
[2024-04-16 16:45] LABS: Glucose - Point of Care 146 mg/dl (70-99)
[2024-04-16] MEDS: NOVOLOG FLEXPEN-LOW RESISTANCE SC (16:48)
[2024-04-16 21:34] LABS: Glucose - Point of Care 155 mg/dl (70-99)
[2024-04-16 23:00] VITALS: BP 147/89
[2024-04-17 07:30] LABS: Glucose - Point of Care 184 mg/dl (70-99)
[2024-04-17 07:35] VITALS: BP 140/87
[2024-04-17] MEDS: NOVOLOG FLEXPEN-LOW RESISTANCE 1 UNITS SC ×2 (07:56→17:19)
[2024-04-17] MEDS: ZESTRIL 20 MG PO (07:56)
[2024-04-17] MEDS: TYLENOL 650 MG PO ×3 (07:56→17:23)
[2024-04-17] MEDS: LIPITOR 10 MG PO (07:57)
[2024-04-17] MEDS: ANCEF 10 IV ×3 (07:57→23:00)
[2024-04-17 12:01] LABS: Glucose - Point of Care 130 mg/dl (70-99)
[2024-04-17] MEDS: GLUCOPHAGE 500 MG PO (12:03)
[2024-04-17] MEDS: NOVOLOG FLEXPEN-LOW RESISTANCE SC (12:31)
--- NOTE | 2024-04-17 13:29 | W.PN.HOSP.TC ---
Today's Communication/Plan
-
DC in am once IV abx are set up
Assessment / Plan
Assessment / Plan
pt is a 58 year old male
Chronic nonhealing right heel ulcer with overlying soft tissue swelling concerning for soft tissue infection. 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 For repeat
surgery today and possible closure then noted--appreciate ID input- arranging OP tx for [address] weeks[address] line in place
DM 2 -restart metformin. On Toujeo as an outpatient. cw sliding scale insulin. No neuropathy. HbA1c 7.1
Essential Hypertension-continue with ERIC inhibitor's but hold hydrochlorothiazide for now.
Good DP rt foot -hold US
Anticipated Discharge: Within 24 hours
Subjective/Interval History
-
Date of Service: April 17, 2024
Patient is sensitive to bandages and patches on the skin. You are advised Dexcom he wears a skin barrier prior to applying it. His got local skin reaction from PICC line dressing.
Objective Data
-
Vital Signs:
Vital Signs
Temp Pulse Resp BP Pulse Ox
98 F 66 16 140/87 95
04/17/24 07:35 04/17/24 07:35 04/17/24 07:35 04/17/24 07:35 04/17/24 07:35
I&O
04/16/24 04/17/24 04/18/24
06:59 06:59 06:59
Intake Total 1680 / 1680 840 / 840 480 / 480
Balance 1680 / 1680 840 / 840 480 / 480
Review of Systems
-
Respiratory: Denies Trouble Breathing
Cardiac: Denies Chest Pain
Abdomen/GI: Denies Abdominal Pain, Nausea or Vomiting
Skin: Reports Other (slight redness of skin at the borders of the picc line dressing)
Physical Exam
-
General: Comfortable
Respiratory: Non Labored Respirations; Negative Accessory Resp Muscle Use
Neuro: AO x 3
Psych: Calm
--- NOTE | 2024-04-17 13:55 | W.PN.ID1 ---
Date of Service
Date of Service: April 17, 2024
Today's Communication
Continue antibiotics.
Assessment / Plan
Right ankle osteomyelitis
DM (uncontrolled; A1c = 7.1)
HTN
Dyslipidemia
Recommendations:
Continue cefazolin 2 g IV every 8 hours for a 6 week course given osteomyelitis.
PICC line placed.
Home infusion sheet placed on paper chart; awaiting home infusion to be set up.
Of note, patient appears to have developed a contact dermatitis around the right upper extremity PICC site. Will contact PICC team to see if there are hypoallergenic dressing options.
Follow-up in the office in 2 weeks time.
����������������������������������������������������������
Chief Complaint
-: Other (Right foot infection)
Subjective / Review of Systems
Review of Systems: No Fever and No Chills
Vital Signs / Physical Exam
Vital Signs
Vital Signs
Temp Pulse Resp BP Pulse Ox
98 F 66 16 140/87 95
04/17/24 07:35 04/17/24 07:35 04/17/24 07:35 04/17/24 07:35 04/17/24 07:35
Physical Exam
Constitutional: No Acute Distress, Comfortable and Non-toxic
Eyes: Sclera Anicteric
Pulmonary: Non Labored
Gastrointestinal: Non Distended
Extremities: Edema
Wound: Other (Right foot in splint and dressed in Grant wrap. No erythema extending up leg.)
Neurological: Awake and Alert
Lines: PICC (Right UE)
Objective Data
Lab Data
Lab Results
04/16/24 08:54
04/16/24 08:54
Estimated Creat Clear > 125 ml/min 04/16/24 08:54
Total Bilirubin 1.1 mg/dl (0.2-1.3) 04/11/24 15:40
AST 46 U/L (17-59) 04/11/24 15:40
ALT 58 U/L (0-50) H 04/11/24 15:40
Alkaline Phosphatase 59 U/L (38-126) 04/11/24 15:40
Most recent labs reviewed.
Micro Results:
04/14/24 17:52 Anaerobic Culture - Preliminary
Foot - Right NO ANAEROBES ISOLATED
04/14/24 17:52 Wound Culture - Preliminary
Foot - Right No growth
Gram Stain - Preliminary
04/12/24 17:50 Wound Culture - Final
Heel - Right S aureus-Methicillin Sensitive
Gram Stain - Final
04/12/24 17:50 Anaerobic Culture - Final
Heel - Right NO ANAEROBES ISOLATED
04/11/24 16:41 Blood Culture - Final
Blood/Venous No Growth - Final Report
04/12/24 17:50 Tissue Culture - Final
Heel - Right S aureus-Methicillin Sensitive
Gram Stain - Final
04/11/24 16:41 Wound Culture - Final
Foot - Right S aureus-Methicillin Sensitive
Gram Stain - Final
04/11/24 22:06 MRSA Screen - Final
Nose No Methicillin Resistant Staphylococcus aureus isolated.
Tissue Culture Final 04/14/24-0832
Many S aureus-Methicillin Sensitive
Organism 1 S aureus-Methicillin Sensitive
1. S aureus-Methicillin Sensitive
M.I.C. RX
--------- ---
Amoxicillin/Potas. Clavulanate <=4/2 S
Ampicillin <=2 R
Clindamycin <=0.5 S
Gentamicin <=4 S
Erythromycin <=0.5 S
Levofloxacin <=1 S
Oxacillin <=0.25 S
Tetracycline <=4 S
Trimethoprim/Sulfamethoxazole <=0.5/9.5 R
Vancomycin 1 S
Imaging:
04/12/2024 MRI right lower extremity: There is a soft tissue defect with underlying phlegmonous change along the posterior soft tissues of the heel extending through the distal aspect of the Achilles tendon and into the underlying posterior
calcaneal bone with findings of calcaneal osteomyelitis. There is increased signal more pronounced along the superior calcaneal anchors, likely due to loosening/infection.
04/11/2024 Right foot x-ray: The posterior and superior aspects of the os calcis have been resected in the interval since the prior study and there is severe overlying soft tissue swelling.
Osteomyelitis is not excluded on the basis of this imaging and if this is a clinical consideration, it could be best further evaluated with nonemergent MRI. Please see full dictation for additional detail. Film personally viewed.
[2024-04-17 15:35] VITALS: BP 142/80
[2024-04-17 16:31] LABS: Glucose - Point of Care 162 mg/dl (70-99)
[2024-04-17] MEDS: GLUCOPHAGE 1000 MG PO (17:19)
[2024-04-17] MEDS: ULTRAM 50 MG PO (22:18)
[2024-04-17] MEDS: BENADRYL 25 MG PO (22:59)
[2024-04-17 23:25] VITALS: BP 142/80
[2024-04-18 07:24] LABS: Glucose - Point of Care 165 mg/dl (70-99)
[2024-04-18 07:45] VITALS: BP 153/87
[2024-04-18] MEDS: LIPITOR 10 MG PO (07:49)
[2024-04-18] MEDS: NOVOLOG FLEXPEN-LOW RESISTANCE 1 UNITS SC ×2 (07:49→11:36)
[2024-04-18] MEDS: GLUCOPHAGE 500 MG PO (07:49)
[2024-04-18] MEDS: ANCEF 10 IV ×3 (07:50→23:02)
[2024-04-18] MEDS: ZESTRIL 20 MG PO (07:51)
--- NOTE | 2024-04-18 09:45 | W.PN.HOSP.TC ---
Today's Communication/Plan
-
IV ABX
Assessment / Plan
Assessment / Plan
pt is a 58 year old male
Chronic nonhealing right heel ulcer with overlying soft tissue swelling concerning for soft tissue infection. 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
ID input- arranging OP tx for [address] line in place
contact dermatitis -- topical hydrocortisone--add prednisone (short course)-- will not d/c on
DM 2 -restart metformin. On Toujeo as an outpatient. cw sliding scale insulin. No neuropathy. HbA1c 7.1
Essential Hypertension-continue with ERIC inhibitor's but hold hydrochlorothiazide for now.
Good DP rt foot -hold US
Anticipated Discharge: Within 24 hours
Subjective/Interval History
-
Date of Service: April 18, 2024
pt waiting to go home with IV ABX
Objective Data
-
Vital Signs:
max temp for 24 hours
04/17/24
15:35
Temp 98.4 F
Vital Signs
Temp Pulse Resp BP Pulse Ox
98.1 F 75 20 133/75 97
04/18/24 07:45 04/18/24 07:51 04/18/24 07:45 04/18/24 07:51 04/18/24 07:45
I&O
04/17/24 04/18/24 04/19/24
06:59 06:59 06:59
Intake Total 840 / 840 480 / 480
Balance 840 / 840 480 / 480
Review of Systems
-
All other systems: Reviewed and negative
Skin: Reports Rash (right upper arm around PICC line--red itchy)
Physical Exam
-
General: Well Developed, Well Nourished and No Apparent Distress
HEENT: Normocephalic and Atraumatic
Respiratory: Clear to Auscultation; Negative Wheezes or Rhonchi
Cardiac: Regular Rhythm and S1/S2; Negative Murmur
GI: Soft, Nontender, Nondistended and Normal Bowel Sounds
Musculoskeletal: No Clubbing, No Cyanosis and No Edema
Skin: Rash (macular rash right upper arm--around PICC line site--looks like contact dermatitis)
[2024-04-18] MEDS: DELTASONE 20 MG PO (10:13)
[2024-04-18] MEDS: HYDROCORTISONE 2.5% OINTMENT 1 APPLIC TOPICAL ×2 (11:02→19:26)
--- NOTE | 2024-04-18 11:16 | CM ---
commercial property manager reviewed patient's chart and met with patient and spoke with [facility] and [facility] and [facility] has a copay, therefore the plan is to use [facility]. commercial property manager spoke
with Giles at [facility] and he is still running benefits through patient's insurance, All clinical paperwork has been faxed over to infusion [employer] since Thursday.
Plan; Home with IV ABX from [facility] and [facility], referral sent to [facility].
[2024-04-18 11:28] LABS: Glucose - Point of Care 154 mg/dl (70-99)
--- NOTE | 2024-04-18 13:57 | W.PN.ID1 ---
Date of Service
Date of Service: April 18, 2024
Today's Communication
Continue antibiotics.
Assessment / Plan
Right ankle osteomyelitis
DM (uncontrolled; A1c = 7.1)
HTN
Dyslipidemia
Recommendations:
Continue cefazolin 2 g IV every 8 hours for a 6 week course given osteomyelitis.
PICC line placed.
Home infusion sheet placed on paper chart; awaiting home infusion to be set up.
Follow-up in the office in 2-3 weeks time.
����������������������������������������������������������
Chief Complaint
-: Other (Right foot infection)
Subjective / Review of Systems
Review of Systems: No Fever and No Chills
Vital Signs / Physical Exam
Vital Signs
Vital Signs
Temp Pulse Resp BP Pulse Ox
98.1 F 75 20 133/75 97
04/18/24 07:45 04/18/24 07:51 04/18/24 07:45 04/18/24 07:51 04/18/24 07:45
Physical Exam
Constitutional: No Acute Distress, Comfortable and Non-toxic
Eyes: Sclera Anicteric
Pulmonary: Non Labored
Gastrointestinal: Non Distended
Extremities: Edema
Wound: Other (Right foot in splint and dressed in Grant wrap. No erythema extending up leg.)
Neurological: Awake and Alert
Lines: PICC (Right UE)
Objective Data
Lab Data
Lab Results
04/16/24 08:54
04/16/24 08:54
Estimated Creat Clear > 125 ml/min 04/16/24 08:54
Total Bilirubin 1.1 mg/dl (0.2-1.3) 04/11/24 15:40
AST 46 U/L (17-59) 04/11/24 15:40
ALT 58 U/L (0-50) H 04/11/24 15:40
Alkaline Phosphatase 59 U/L (38-126) 04/11/24 15:40
Most recent labs reviewed.
Micro Results:
04/14/24 17:52 Anaerobic Culture - Preliminary
Foot - Right NO ANAEROBES ISOLATED
04/14/24 17:52 Wound Culture - Preliminary
Foot - Right No growth
Gram Stain - Preliminary
04/12/24 17:50 Wound Culture - Final
Heel - Right S aureus-Methicillin Sensitive
Gram Stain - Final
04/12/24 17:50 Anaerobic Culture - Final
Heel - Right NO ANAEROBES ISOLATED
04/11/24 16:41 Blood Culture - Final
Blood/Venous No Growth - Final Report
04/12/24 17:50 Tissue Culture - Final
Heel - Right S aureus-Methicillin Sensitive
Gram Stain - Final
04/11/24 16:41 Wound Culture - Final
Foot - Right S aureus-Methicillin Sensitive
Gram Stain - Final
04/11/24 22:06 MRSA Screen - Final
Nose No Methicillin Resistant Staphylococcus aureus isolated.
Tissue Culture Final 04/14/24-831
Many S aureus-Methicillin Sensitive
Organism 1 S aureus-Methicillin Sensitive
1. S aureus-Methicillin Sensitive
M.I.C. RX
--------- ---
Amoxicillin/Potas. Clavulanate <=4/2 S
Ampicillin <=2 R
Clindamycin <=0.5 S
Gentamicin <=4 S
Erythromycin <=0.5 S
Levofloxacin <=1 S
Oxacillin <=0.25 S
Tetracycline <=4 S
Trimethoprim/Sulfamethoxazole <=0.5/9.5 R
Vancomycin 1 S
Imaging:
04/12/2024 MRI right lower extremity: There is a soft tissue defect with underlying phlegmonous change along the posterior soft tissues of the heel extending through the distal aspect of the Achilles tendon and into the underlying posterior
calcaneal bone with findings of calcaneal osteomyelitis. There is increased signal more pronounced along the superior calcaneal anchors, likely due to loosening/infection.
04/11/2024 Right foot x-ray: The posterior and superior aspects of the os calcis have been resected in the interval since the prior study and there is severe overlying soft tissue swelling.
Osteomyelitis is not excluded on the basis of this imaging and if this is a clinical consideration, it could be best further evaluated with nonemergent MRI. Please see full dictation for additional detail. Film personally viewed.
[2024-04-18 15:09] VITALS: BP 156/82
[2024-04-18 15:24] LABS: Glucose - Point of Care 266 mg/dl (70-99)
--- NOTE | 2024-04-18 16:14 | VNURNOTE ---
Home Health Liaison spoke with patient to discuss [facility] nurse/therapy, visits, schedule and homebound status. Discussed that visits at home will be 1-3 x per week to assess and teach medical management and provide wound care as applicable. Explained
that [facility] will contact them for start of care in 1-2 days after discharge from . Patient does not believe that he will need wound care once he goes home until after he has office follow up with Podiatry. He wants to speak to his and decide
about [facility] tomorrow.
[facility] referral in [facility]. Will follow up.
[2024-04-18 17:04] LABS: Glucose - Point of Care 242 mg/dl (70-99)
[2024-04-18] MEDS: NOVOLOG FLEXPEN-LOW RESISTANCE 2 UNITS SC (17:29)
[2024-04-18] MEDS: GLUCOPHAGE 1000 MG PO (17:29)
[2024-04-18] MEDS: TYLENOL 650 MG PO (19:26)
[2024-04-18 21:15] LABS: Glucose - Point of Care 158 mg/dl (70-99)
[2024-04-18 23:40] VITALS: BP 142/81
[2024-04-19 07:27] VITALS: BP 149/90
[2024-04-19 07:46] LABS: Glucose - Point of Care 168 mg/dl (70-99)
[2024-04-19] MEDS: LIPITOR 10 MG PO (08:13)
[2024-04-19] MEDS: ANCEF 10 IV (08:13)
[2024-04-19] MEDS: NOVOLOG FLEXPEN-LOW RESISTANCE 1 UNITS SC (08:13)
[2024-04-19] MEDS: DELTASONE 20 MG PO (08:15)
[2024-04-19] MEDS: GLUCOPHAGE 500 MG PO (08:15)
[2024-04-19] MEDS: ZESTRIL 20 MG PO (08:15)
[2024-04-19] MEDS: HYDROCORTISONE 2.5% OINTMENT 1 APPLIC TOPICAL (08:16)
--- NOTE | 2024-04-19 11:24 | VNURNOTE ---
Follow up note: This author spoke to e/m engineer, Dr Coburn. He is ordering home PT, OT. No home nursing at this time. Spoke to patient. Updated him on e/m engineer's recs. Patient is agreeable, he believes his insurance is capitated with
[facility], OT. He will call insurance co. and find out. MAVERICK Dale updated. Ann-Marie in [facility] Intake updated.
[2024-04-19 11:28] LABS: Glucose - Point of Care 246 mg/dl (70-99)
[2024-04-19] MEDS: NOVOLOG FLEXPEN-LOW RESISTANCE 2 UNITS SC (11:35)
[2024-04-19] MEDS: TYLENOL 650 MG PO (11:39)
--- NOTE | 2024-04-19 12:41 | W.PN.HOSP.TC ---
Addendum entered and electronically signed by Heather Salas MD 04/20/24 09:44:
acute anemia expected with blood draws in hospital, IVF, etc
Original Note:
Today's Communication/Plan
-
still waiting for infusion company to arrange ABX/teaching/VN, etc
Assessment / Plan
Assessment / Plan
pt is a 58 year old male
Chronic nonhealing right heel ulcer with overlying soft tissue swelling concerning for soft tissue infection. 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
ID input- arranging OP tx for [address] line in place
contact dermatitis -- topical hydrocortisone--add prednisone (short course)-- will not d/c on
DM 2 -restart metformin. On [facility] as an outpatient. cw sliding scale insulin. No neuropathy. HbA1c 7.1
Essential Hypertension-continue with ERIC inhibitor's but hold hydrochlorothiazide for now.
Good DP rt foot -hold US
Anticipated Discharge: Today
Subjective/Interval History
-
Date of Service: April 19, 2024
pt waiting for d/c
Objective Data
-
Vital Signs:
max temp for 24 hours
04/18/24
15:09
Temp 98.7 F
Vital Signs
Temp Pulse Resp BP Pulse Ox
97.8 F 70 20 153/90 100
04/19/24 07:27 04/19/24 08:15 04/19/24 07:27 04/19/24 08:15 04/19/24 07:27
I&O
04/18/24 04/19/24 04/20/24
06:59 06:59 06:59
Intake Total 480 / 480 1939
Balance 480 / 480 1939
Review of Systems
-
All other systems: Reviewed and negative
Physical Exam
-
General: Well Developed, Well Nourished and No Apparent Distress
HEENT: Normocephalic and Atraumatic
Respiratory: Clear to Auscultation; Negative Wheezes or Rhonchi
Cardiac: Regular Rhythm and S1/S2; Negative Murmur
GI: Soft, Nontender, Nondistended and Normal Bowel Sounds
Musculoskeletal: No Clubbing, No Cyanosis and Other (post op stiff cast on right foot)
--- NOTE | 2024-04-19 14:01 | CM ---
Addendum entered by Elena Dale 04/19/24 16:09:
[facility] unable to do home assessment and Patient made aware. CM reviewed with Dr. Coburn and patient able to follow up with outpatient therapy as needed.
Original Note:
CM spoke with Giles at [facility]; [phone] . Per Giles [facility] does not have the ability to provide PT/OT. Patient teach will be with [facility] today and nursing will be there to provide medication at next dose time
of 6pm. CM will reach out to [facility] once Giles provides information to see if they can provide PT/TO. CM will continue to follow for discharge planning needs.
Plan; home with iv antibiotics.
[2024-04-19] MEDS: VISBIOME 1 CAP PO (14:26)
--- NOTE | 2024-04-19 14:48 | PN.CDI ---
CDI
- -
CDI:
Physician Documentation Request
Admit Date: 04/11/24 18:51
Dear Doctor Josue,
Patient admitted with chronic nonhealing right heel ulcer.
04/19 PN, 'Status post I&D of right heel wound as well as removal of anchors in the heel.'
04/11 Hgb 14.0
04/16 Hgb 11.1
Based on the above, please provide in your note the likely diagnosis you are evaluating, monitoring and/or treating?
Acute blood loss anemia
Insignificant abnormal lab finding
Other
Use of terms such as suspected, likely, concern for, or probable (associated with a specific diagnosis that is being evaluated, monitored, or treated as if it exists) are acceptable and can be coded in the inpatient setting, when documented at the
time of discharge.
Thank you,
Patria COLEN,RN,CCDS
CDI Specialist
Available via tiger text
Please use your independent medical judgment in providing your response.
[2024-04-19 14:54] VITALS: BP 125/69
--- NOTE | 2024-04-19 15:20 | W.PN.ID1 ---
Date of Service
Date of Service: April 19, 2024
Today's Communication
Continue current antibiotics.
Assessment / Plan
Right ankle osteomyelitis
DM (uncontrolled; A1c = 7.1)
HTN
Dyslipidemia
Recommendations:
Continue cefazolin 2 g IV every 8 hours for a 6 week course given osteomyelitis.
PICC line placed.
Home infusion sheet placed on paper chart; awaiting home infusion to be set up.
Follow-up in the office in 2-3 weeks time.
����������������������������������������������������������
Chief Complaint
-: Other (Right foot infection)
Subjective / Review of Systems
Review of Systems: No Fever and No Chills
Vital Signs / Physical Exam
Vital Signs
Vital Signs
Temp Pulse Resp BP Pulse Ox
98.2 F 58 20 125/69 96
04/19/24 14:54 04/19/24 14:54 04/19/24 14:54 04/19/24 14:54 04/19/24 14:54
Physical Exam
Constitutional: No Acute Distress, Comfortable and Non-toxic
Eyes: Sclera Anicteric
Pulmonary: Non Labored
Gastrointestinal: Non Distended
Extremities: Edema (decreased); Negative Erythema
Wound: Other (Right foot in splint and dressed in Grant wrap. No erythema extending up leg.)
Neurological: Awake and Alert
Lines: PICC (Right UE)
Objective Data
Lab Data
Lab Results
04/16/24 08:54
04/16/24 08:54
Estimated Creat Clear > 125 ml/min 04/16/24 08:54
Total Bilirubin 1.1 mg/dl (0.2-1.3) 04/11/24 15:40
AST 46 U/L (17-59) 04/11/24 15:40
ALT 58 U/L (0-50) H 04/11/24 15:40
Alkaline Phosphatase 59 U/L (38-126) 04/11/24 15:40
Most recent labs reviewed.
Micro Results:
04/14/24 17:52 Wound Culture - Final
Foot - Right No growth
Gram Stain - Final
04/14/24 17:52 Anaerobic Culture - Final
Foot - Right NO ANAEROBES ISOLATED
04/12/24 17:50 Wound Culture - Final
Heel - Right S aureus-Methicillin Sensitive
Gram Stain - Final
04/12/24 17:50 Anaerobic Culture - Final
Heel - Right NO ANAEROBES ISOLATED
04/11/24 16:41 Blood Culture - Final
Blood/Venous No Growth - Final Report
04/12/24 17:50 Tissue Culture - Final
Heel - Right S aureus-Methicillin Sensitive
Gram Stain - Final
04/11/24 16:41 Wound Culture - Final
Foot - Right S aureus-Methicillin Sensitive
Gram Stain - Final
04/11/24 22:06 MRSA Screen - Final
Nose No Methicillin Resistant Staphylococcus aureus isolated.
Tissue Culture Final 04/14/24-32
Many S aureus-Methicillin Sensitive
Organism 1 S aureus-Methicillin Sensitive
1. S aureus-Methicillin Sensitive
M.I.C. RX
--------- ---
Amoxicillin/Potas. Clavulanate <=4/2 S
Ampicillin <=2 R
Clindamycin <=0.5 S
Gentamicin <=4 S
Erythromycin <=0.5 S
Levofloxacin <=1 S
Oxacillin <=0.25 S
Tetracycline <=4 S
Trimethoprim/Sulfamethoxazole <=0.5/9.5 R
Vancomycin 1 S
Imaging:
04/12/2024 MRI right lower extremity: There is a soft tissue defect with underlying phlegmonous change along the posterior soft tissues of the heel extending through the distal aspect of the Achilles tendon and into the underlying posterior
calcaneal bone with findings of calcaneal osteomyelitis. There is increased signal more pronounced along the superior calcaneal anchors, likely due to loosening/infection.
04/11/2024 Right foot x-ray: The posterior and superior aspects of the os calcis have been resected in the interval since the prior study and there is severe overlying soft tissue swelling.
Osteomyelitis is not excluded on the basis of this imaging and if this is a clinical consideration, it could be best further evaluated with nonemergent MRI. Please see full dictation for additional detail. Film personally viewed.
== END 2024-04-19 15:47 | disposition home health service (06) | DRG 501 ==
LOC: 4 WEST ACU 18:51
PROVIDERS: Nurse Practitioner; Nurse Practitioner Gerontology; Physician Assistant Medical; ADMITTING PHYSICIAN Internal Medicine; ATTENDING PHYSICIAN Internal Medicine; CONSULT PHYSICIAN Student in an Organized Health Care Education/Training Program; EMERGENCY PHYSICIAN Emergency Medicine; FAMILY PHYSICIAN Internal Medicine; OTHER PHYSICIAN Internal Medicine Infectious Disease
PROC: 0YHM0YZ Insertion of Other Device into Right Foot, Open Approach (ICD-10-PCS; 2024-04-11)
PROC: 0QBL0ZZ Excision of Right Tarsal, Open Approach (ICD-10-PCS; 2024-04-11)
PROC: 0QCL0ZZ Extirpation of Matter from Right Tarsal, Open Approach (ICD-10-PCS; 2024-04-11)
PROC: 0LQN0ZZ Repair Right Lower Leg Tendon, Open Approach (ICD-10-PCS; 2024-04-14)
DX: T84.7XXA Infection and inflammatory reaction due to other internal orthopedic prosthetic devices, implants and grafts, initial encounter (principal); D62 Acute posthemorrhagic anemia; L97.419 Non-pressure chronic ulcer of right heel and midfoot with unspecified severity; M86.9 Osteomyelitis, unspecified; Z68.41 Body mass index [BMI] 40.0-44.9, adult; E11.69 Type 2 diabetes mellitus with other specified complication; E11.621 Type 2 diabetes mellitus with foot ulcer; I10 Essential (primary) hypertension; E66.9 Obesity, unspecified; T84.84XA Pain due to internal orthopedic prosthetic devices, implants and grafts, initial encounter; B95.61 Methicillin susceptible Staphylococcus aureus infection as the cause of diseases classified elsewhere; Y79.3 Surgical instruments, materials and orthopedic devices (including sutures) associated with adverse incidents; E78.00 Pure hypercholesterolemia, unspecified; Z79.84 Long term (current) use of oral hypoglycemic drugs; Z79.899 Other long term (current) drug therapy; Z86.61 Personal history of infections of the central nervous system
CPT/HCPCS: 88304; 88311; 71045; 73600; 73630; 73720; 76000; 80048; 80053; 82962; 83036; 85025; 85027; 87040; 87070; 87075; 87147; 87176; 87186; 87205; 93922; 93925; 96365; 96367; 97116; 97162; 97165; 99284; A9575; C1713